=== PATIENT | female | born 1935 | race African-American/Black ===

== ENCOUNTER 2021-01-03 12:14 | Emergency (ER) | payer MEDICARE, BC, SELFPAY ==
--- NOTE | ~2021-01-03 | XR_ITS ---
EXAMINATION: XR chest 2V DATE: 01/03/2021 14:00 INDICATION: Chest pain. TECHNIQUE: Frontal and lateral views of the chest were obtained. COMPARISON: None. FINDINGS: Calcified pulmonary nodules and calcified hilar lymph nodes are consistent with old granulo matous disease. There is no pneumonia, pleural effusion, or pneumothorax. Cardiomegaly is noted. IMPRESSION: 1. Cardiomegaly. Reviewed, dictated and finalized at location B. IMPRESSION: 1. Cardiomegaly.
--- NOTE | 2021-01-03 12:22 | ECG_ITS ---
Measurements Intervals [place] Rate: 71 P: -13 [place]: 160 QRS: 11 QRSD: 88 T: 69 QT: 388 QTc: 422 Interpretive Statements SINUS RHYTHM FREQUENT ATRIAL PREMATURE COMPLEXES DELAYED PRECORDIAL R/S TRANSITION VOLTAGE CRITERIA FOR LVH BASELINE ARTIFACT- I, II, AVR, AVL ABNORMAL ECG Electronically Signed On 01-03-2021 12:48:41 CDT by Remy Jackson D.O.
[2021-01-03 12:23] VITALS: BP 174/80; PULSE 67; RESP 16; TEMP 36.1; O2SAT 100
[2021-01-03 12:46] LABS: Basophils Percent Auto 0.4 % (0.2-1.2); Eosinophils Absolute Auto 0.2 K/mm3 (0-0.3); Hematocrit 28.9 % (37.0-47.0); Hemoglobin 8.3 g/dL (12.0-15.0); Immature Granulocyte Absolute 0.05 K/mm3 (0.00-0.031); Immature Granulocyte Percent A 0.5 % (0-0.5); Lymphocytes Absolute Auto 2.25 K/mm3 (0.9-3.2); Lymphocytes Percent Auto 21.7 % (18.3-44.2); Mean Corpuscular HGB Conc 28.7 g/dl (32-36); Mean Corpuscular Hemoglobin 20.9 pg (26-34); Mean Corpuscular Volume 72.8 fl (80-100); Mean Platelet Volume 8.4 fl (7.4-10.4); Monocytes Absolute Auto 0.9 K/mm3 (0.1-0.6); Monocytes Percent Auto 8.5 % (2.6-8.5); Neutrophils Absolute Auto 6.9 K/mm3 (1.3-6.7); Neutrophils Percent Auto 66.9 % (45.5-73.1); Nucleated Red Blood Cells Perc 0.3 % (0.0-0.2); Platelet Count Result 313 k/mm3 (150-375); Red Blood Count 3.97 M/mm3 (4.2-5.4); Red Cell Distribution Width 21.4 % (11.5-14.5); White Blood Count 10.4 K/mm3 (4.5-10.0)
[2021-01-03 12:55] LABS: Anion Gap 3 mmol/L (8-16); Blood Urea Nitrogen 25 mg/dL (7-17); Calcium 8.9 mg/dL (8.4-10.2); Carbon Dioxide 32 mmol/L (22-30); Chloride 102 mmol/L (98-107); Estimated CRCL calculation 39 ml/min; Estimated Glomerular Filt Rate 60; Glucose 92 mg/dL (65-105); Prothrombin Time 13.3 Seconds (11.1-14.7); Sodium 137 mmol/L (137-145)
[2021-01-03 12:56] LABS: Partial Thromboplastin Time 26.4 SECONDS (22.3-36.8); Platelet Estimate Adequate (Adequate)
[2021-01-03 12:57] LABS: Hypochromasia 2+ (NORMAL); Ovalocytes 1+ (NORMAL); Stomatocytes 1+ (NORMAL); Target Cells 2+ (NORMAL)
[2021-01-03 13:18] LABS: Troponin I 0.036 ng/mL (0.000-0.034)
--- NOTE | 2021-01-03 13:40 | ED.CHESTPAIN ---
HPI - Chest Pain General Chief Complaint: Chest Pain Stated Complaint: chest pain Time Seen by Provider: 01/03/21 13:36 Source: patient and family Mode of arrival: ambulatory Limitations: no limitations History of Present Illness HPI narrative: Patient is 85 years old -Citizen Of [place] female presents with intermittent retrosternal pressure type pain started 3 days ago, comes at rest, last between 10 and 15 minutes, no radiation, patient denies aggravating or relieving factors. Last chest pain was 5 hours ago. Patient denies any fever, chills, nausea, vomiting, shortness of breath, back pain, or history of chest pain.. Patient denies taking any blood thinner medication. Patient used to be on blood pressure medicine which she stopped on her own 3 weeks ago. Currently blood pressure is 174/80. History of anemia. Patient does not smoke or drink or uses drugs. Patient lives alone. Related Data Home Medications Medication Instructions Recorded Confirmed acetaminophen [Tylenol Arthritis mg PO 01/03/21 Pain] diphenhydramine HCl [Benadryl] 25 mg PO HS PRN 01/03/21 gabapentin 01/03/21 prednisone 01/03/21 Allergies Allergy/AdvReac Type Severity Reaction Status Date / Time shrimp Allergy Swelling Verified 01/03/21 13:53 Review of Systems Review of Systems: Narrative: CONSTITUTIONAL: Denies fever, chills, or sweats. EYES: Denies visual changes, redness, or discharge. ENT: Denies rhinorrhea, congestion, sore throat, or otalgia. CARDIOVASCULAR: Denies chest pain, palpitations, or edema. RESPIRATORY: Denies cough or dyspnea. GASTROINTESTINAL: Denies abdominal pain, nausea, vomiting, or diarrhea. GENITOURINARY: Denies dysuria or hematuria. SKIN: Denies rash or itching. MUSCULOSKELETAL: Denies back pain, joint pain, or myalgia. NEUROLOGIC: Denies headache, numbness, or weakness. PSYCHIATRIC: Denies anxiety or depression. [facility] Past Medical History Medical History Anemia Arthritis Chest pain at rest CHF (congestive heart failure) Osteopenia after menopause (~03/2020) Pyoderma gangrenosum (~08/2020) Rheumatoid arthritis, seropositive, multiple sites Social History Social History Smoking status: Never smoker Alcohol intake: never Substance use: never Substance use type: does not use Gender identity (if verbalized by the patient): Female Exam Narrative: Exam Narrative: General appearance: Well-developed, well-nourished Skin: Normal color Head: Normocephalic, nontraumatic Eyes: Clear conjunctiva ENT: Oropharynx normal, ears normal, nose normal Neck: Supple, nontender Chest and respiratory: Airway patent, no respiratory distress, no accessory muscle use Heart: Regular rate/rhythm Abdomen: Soft, nontender, no organomegaly, quiet bowel sounds Vascular: Normal peripheral pulses, normal capillary refill. Musculoskeletal: Normal range of motion, nontender back Neurologic: Alert and oriented ?3, [employer] is normal as tested, no gross motor deficit Course Course Emergency Course: Stable, asymptomatic Reevaluation(s) Reevaluation #1: Patient is still asymptomatic, declined to be hospitalized, would like to follow-up with her associate quality engineer at [facility]. I did offer her to transfer to [facility] today, she declined to. Patient is aware about her diagnosis of heart attack and uncontrolled hypertension. Patient signed AMA, will be discharged on aspirin and Lopressor Date: 01/03/21 Time: 14:53 Vital Signs Vital signs: Vital Signs Temperature 36.1 C L 01/03/21 12:23 Pulse Rate 67 01/03/21 12:23 Respiratory Rate 16
[2021-01-03 14:18] VITALS: BP 177/95; PULSE 81; RESP 17; O2SAT 100
[2021-01-03] MEDS: ASPIRIN 81 MG CHEWABLE TABLET 324 MG PO (14:20)
[2021-01-03 14:31] VITALS: PULSE 81
[2021-01-03 14:41] VITALS: PULSE 94
[2021-01-03] MEDS: METOPROLOL TARTRATE 50 MG TAB 25 MG PO (14:41)
[2021-01-03 14:52] LABS: Alanine Aminotransferase 14 U/L (4-35); Albumin Level 3.5 g/dL (3.5-5.1); Alkaline Phosphatase 52 U/L (38-126); Aspartate Amino Transferase 24 U/L (14-36); Bilirubin,Total 0.4 mg/dL (0.2-1.3)
[2021-01-03 15:01] LABS: NT Pro B Type Natriuretic Pept 2370 pg/mL (5-100)
[2021-01-03 15:11] VITALS: BP 185/78; PULSE 87; RESP 15; O2SAT 98
[2021-01-03 15:22] LABS: D Dimer 3.29 ug/mL (<0.48)
== END 2021-01-03 15:47 | disposition left against medical advice (07) ==
PROVIDERS: Emergency Provider Emergency Medicine; PCP Family Medicine
DX: I21.4 Non-ST elevation (NSTEMI) myocardial infarction (principal); Z91.14 Patient's other noncompliance with medication regimen; D64.9 Anemia, unspecified; M19.90 Unspecified osteoarthritis, unspecified site; I50.9 Heart failure, unspecified; I11.0 Hypertensive heart disease with heart failure; M85.80 Other specified disorders of bone density and structure, unspecified site; M05.9 Rheumatoid arthritis with rheumatoid factor, unspecified; I49.3 Ventricular premature depolarization; R94.31 Abnormal electrocardiogram [ECG] [EKG]
CPT/HCPCS: 36415; 71046; 80048; 80076; 83880; 84484; 85025; 85380; 85610; 85730; 93005; 99284; A9270

== ENCOUNTER 2021-05-10 11:56 | Outpatient (CLI) | payer MEDICARE, BC, SELFPAY ==
--- NOTE | ~2021-05-10 | XR_ITS ---
XR foot RT standing 2V DATE: 05/10/2021 13:10 INDICATION: Rheumatoid arthritis TECHNIQUE: Weightbearing AP and lateral views COMPARISON: None FINDINGS: Pes planus. Mild plantar calcaneal enthesopathy without erosive change or periostitis. Prominent hallux valgus and bunion deformity. No fracture or dislocation, periosteal reaction or bone destruction is detected. No erosive change is identified. IMPRESSION: Pes planus Osteopenia Mild plantar calcaneal enthesopathy Severe hallux valgus and bunion deformity Reviewed, dictated and finalized at location A.
--- NOTE | ~2021-05-10 | XR_ITS ---
XR foot LT standing 2V DATE: 05/10/2021 13:10 INDICATION: Rheumatoid arthritis TECHNIQUE: Weightbearing AP and lateral g views COMPARISON: None FINDINGS: Prominent diffuse osteopenia. Pes planus. Mild plantar calcaneal enthesopathy without erosi ve change or periostitis. Prominent hallux valgus and bunion deformity. Osteophyte is at first metatarsophalangeal joint. IMPRESSION: Diffuse osteopenia Pes planus Mild plantar calcaneal enthesopathy Prominent hallux valgus and bunion deformity Osteoarthritic the first metatarsophalangeal joint Reviewed, dictated and finalized at location A.
--- NOTE | ~2021-05-10 | XR_ITS ---
XR hand BI arthritis min 3V DATE: 05/10/2021 13:10 INDICATION: Rheumatoid arthritis TECHNIQUE: 4 views of each hand COMPARISON: None FINDINGS: There is diffuse osteopenia. No recent fracture or dislocation, periosteal reaction or bone destruction of either hand is evident. Right hand: There is radiocarpal joint narrowing and erosive change. Erosive changes joint space narrowing involving the carpal bones. Scapholunate dissociation. There is joint space narrowing and spurring consistent with osteoarthritis at the first carpometacarp al joint. There is erosive change and joint space narrowing and spurring at the first metacarpophalan geal joint. There is joint space narrowing and spurring consistent with osteoarthritis at the interph alangeal joint of the first digit. There are mild erosive changes and degenerative changes at the interphalangeal joints. Left hand: There is narrowing and erosive change at the radionavicular joint. Carpal joint space narrowing and e rosions are noted. There is joint space narrowing and spurring at the first carpometacarpal joint consistent with osteoa rthritis. There is joint space narrowing and erosive change at the first metacarpophalangeal joint. T here is osteoarthritis at the interphalangeal joint of the first digit. Osteoarthritic changes are no rowdy affecting additional interphalangeal joints, most prominently at the distal interphalangeal joint of the third digit. 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
[2021-05-10 12:31] LABS: Hemoglobin 9.3 g/dL (12.0-15.0); Mean Corpuscular HGB Conc 28.2 g/dl (32-36); Mean Corpuscular Volume 74.7 fl (80-100); Mean Platelet Volume 9.4 fl (7.4-10.4); Platelet Count Result 365 k/mm3 (150-375); Red Blood Count 4.42 M/mm3 (4.2-5.4); Red Cell Distribution Width 21.7 % (11.5-14.5); White Blood Count 9.6 K/mm3 (4.5-10.0)
[2021-05-10 13:05] LABS: Alanine Aminotransferase 11 U/L (4-35); Albumin Level 3.8 g/dL (3.5-5.1); Alkaline Phosphatase 42 U/L (38-126); Anion Gap 3 mmol/L (8-16); Aspartate Amino Transferase 25 U/L (14-36); Bilirubin,Total 0.5 mg/dL (0.2-1.3); Blood Urea Nitrogen 23 mg/dL (7-17); Carbon Dioxide 27 mmol/L (22-30); Chloride 106 mmol/L (98-107); Estimated Glomerular Filt Rate > 60; Glucose 95 mg/dL (65-110); Potassium 4.6 mmol/L (3.4-5.0); Sodium 136 mmol/L (137-145)
[2021-05-10 13:09] LABS: Rheumatoid Factor 112.4 IU/ML (<12)
[2021-05-10 13:42] LABS: Add Urine Microscopic? YES; Appearance Urine Cloudy (Clear); Bacteria Urine Trace /hpf; Bilirubin Urine Negative (Negative); Blood Urine Negative (Negative); Color Urine Amber (Yellow); Glucose Urine UA Negative (Negative); Ketones Urine Negative (Negative); Leukocyte Esterase Ur Trace LEU/UL (Negative); Mucus Urine Moderate /lpf; Nitrate Urine Positive (Negative); Protein Urine Negative (Negative); Squamous Epithelial Cell Urine Many /hpf (Few); Urobilinogen Urine Negative mg/dL (<2.0); WBC Urine 16-20 /hpf
[2021-05-10 17:58] LABS: Erythrocyte Sedimentation Rate 26 mm/hr (0-20)
[2021-05-15 23:28] LABS: Anti Cyclic Citrullinated Pept >250 Units (<20)
== END 2021-05-10 11:57 | disposition home or self-care (01) ==
PROVIDERS: PCP Family Medicine; Visit Provider Internal Medicine
DX: M05.79 Rheumatoid arthritis with rheumatoid factor of multiple sites without organ or systems involvement (principal); M19.90 Unspecified osteoarthritis, unspecified site; M06.9 Rheumatoid arthritis, unspecified; M85.872 Other specified disorders of bone density and structure, left ankle and foot; M77.32 Calcaneal spur, left foot; M20.12 Hallux valgus (acquired), left foot; M19.072 Primary osteoarthritis, left ankle and foot; M85.871 Other specified disorders of bone density and structure, right ankle and foot; M77.31 Calcaneal spur, right foot; M20.11 Hallux valgus (acquired), right foot
CPT/HCPCS: 36415; 73130; 73620; 80053; 81001; 85027; 85652; 86038; 86140; 86200; 86430; 87077; 87086; 87088; 87186